=== PATIENT | female | born 1960 | race Caucasian/White ===

== ENCOUNTER 2021-12-08 02:21 | Emergency (ER) | payer SELFPAY ==
[2021-12-08 02:47] LABS: BASOPHIL 0.3 % (0-2); EOSINOPHIL 3.5 % (0-5); HGB 13.3 g/dl (12.5-16.0); MCH 26.7 pg (25.0-31.0); MCHC 30.9 g/dL (32.0-36.0); MCV 86.2 fL (78.0-100.0); MPV 10.1 fL (6.0-9.5); NEUTROPHIL 50.1 % (41-80); NRBC 0; PLT 354 K/uL (150-400); RBC 4.99 M/uL (4.20-5.40); RDW 13.9 % (11.5-14.0); WBC 15.9 K/uL (4.0-10.5)
[2021-12-08 02:51] LABS: LYMPHOCYTE 40.7 % (15-48)
[2021-12-08 02:52] LABS: INR 0.91 (0.9-1.2); PTT 24.8 SECONDS (24.9-34.6)
[2021-12-08 02:54] LABS: D-DIMER 0.87 ug/mLFEU (0.00-0.41)
[2021-12-08 03:01] LABS: BILIRUBIN - TOTAL 0.2 mg/dL (0.2-1.0); BUN/CREAT RATIO (CALC) 23.3 RATIO; CREATININE 0.73 mg/dL (0.51-0.95); GLOBULIN (CALCULATION) 3.6 g/dL; POTASSIUM 3.7 mmol/L (3.5-5.1); TOTAL PROTEIN 7.6 g/dL (6.4-8.2)
[2021-12-08] MEDS ORDERED: VIBRAMYCIN100 MG PO (05:50)
[2021-12-08] MEDS ORDERED: DIFLUCAN 100MG100 MG PO (05:50)
== END 2021-12-08 06:28 | disposition home or self-care (01) ==
LOC: FER 02:21
PROVIDERS: Emergency Medicine
DX: R07.89 Other chest pain (principal); J40 Bronchitis, not specified as acute or chronic; I10 Essential (primary) hypertension
CPT/HCPCS: 36415; 71045; 71275; 80053; 83880; 84484; 85025; 85379; 85610; 85730; 93005; J2270; J2405; Q9967